=== PATIENT | female | born 1975 | race Caucasian/White ===

== ENCOUNTER 2018-03-24 10:34 | Emergency (ER) | payer OTHER ==
[~2018-03-24] VITALS: Ht 167.6 cm; Wt 82.6 kg
[2018-03-24 11:22] LABS: BASO # 0.1 x10^3/uL (0.0-0.2); BASO % 1 % (0-3); EOS # 0.2 x10^3/uL (0.0-0.7); EOS % 2 % (0-3); HEMATOCRIT 40.8 % (36.0-47.0); LYMPH # 2.1 x10^3/uL (1.0-4.8); LYMPH % 25 % (24-48); MEAN CORPUSCULAR HEMOGLOBIN 31 pg (25-35); MEAN CORPUSCULAR HGB CONC 34 g/dL (31-37); MEAN CORPUSCULAR VOLUME 89 fL (79-100); MONO # 0.6 x10^3/uL (0.0-1.1); MONO % 7 % (0-9); NEUT # 5.5 x10^3uL (1.8-7.7); NEUT % 65 % (31-73); PLATELET COUNT 298 x10^3/uL (140-400); RED BLOOD COUNT 4.57 x10^6/uL (3.50-5.40); RED CELL DISTRIBUTION WIDTH 13.5 % (11.5-14.5); WHITE BLOOD COUNT 8.5 x10^3/uL (4.0-11.0)
--- NOTE | 2018-03-24 11:26 | RAD ---
EXAM: Chest, single view. HISTORY: Chest pain. COMPARISON: None. FINDINGS: A frontal view of the chest is obtained. There is no infiltrate, pleural effusion or pneumothorax. The heart is normal in size. IMPRESSION: No acute pulmonary finding. Electronically signed by: Shadia Guardado MD (03/24/2018 11:23 AM) [place] [id number]
[2018-03-24] MEDS ORDERED: KETOROLAC 30 MG/ML VIAL. IV ONE (11:30)
[2018-03-24 11:40] LABS: ALBUMIN 3.9 g/dL (3.4-5.0); ALBUMIN/GLOBULIN RATIO 0.9 (1.0-1.7); CREATININE 0.8 mg/dL (0.6-1.0); GFR 78.7; POTASSIUM 3.4 mmol/L (3.5-5.1); TOTAL BILIRUBIN 0.3 mg/dL (0.2-1.0); TOTAL PROTEIN 8.1 g/dL (6.4-8.2)
[2018-03-24 12:05] VITALS: BP 117/75
--- NOTE | 2018-03-24 12:07 | PHYS DOC ---
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 Patient complaining of left-sided chest pain intermittently for the last 3 months that usually happen once a day and lasts about 2-3 minutes. Patient states the pain is a sharp pain with radiation to her back and associated with shortness of breath and palpitation that nausea and fever and chills. Patient states her pain lasts for longer time today and she decided to come to the emergency room. Patient states she had home visits by her physician regarding the same pain with pending test. Patient does not have any cardiac risk factor except for smoking. Review of Systems Review of Systems Constitutional: Denies fever or chills [] Eyes: Denies change in visual acuity, redness, or eye pain [] HENT: Denies nasal congestion or sore throat [] Respiratory: Denies cough, reports shortness of breath [] Cardiovascular: No additional information not addressed in HPI [] GI: Denies abdominal pain, nausea, vomiting, bloody stools or diarrhea [] : Denies dysuria or hematuria [] Musculoskeletal: Denies back pain or joint pain [] Integument: Denies rash or skin lesions [] Neurologic: Denies headache, focal weakness or sensory changes [] Endocrine: Denies polyuria or polydipsia [] All other systems were reviewed and found to be within normal limits, except as documented in this note. Current Medications Current Medications Current Medications Medications (Trade) Dose Ordered Sig/Wilbur Start Time Stop Time Status Last Admin Dose Admin Ketorolac Tromethamine (Toradol 30mg Vial) 30 mg 1X ONCE 03/24/18 11:30 03/24/18 11:31 DC 03/24/18 11:26 30 MG Allergies Allergies Allergies Coded Allergies Type Severity Reaction Last Updated Verified No Known Drug Allergies 07/05/14 No Physical Exam Physical Exam mildno acute distress, non-toxic appearance. [] HENT: Normocephalic, atraumatic, , oropharynx moist, no oral exudates, nose normal. [] Eyes: Blind, wearing dark sunglasses Neck: Normal range of motion, no tenderness, supple, no stridor. [] Cardiovascular:Heart rate regular rhythm, no murmur Lungs & Thorax: Bilateral breath sounds clear to auscultation [] Abdomen: Bowel sounds normal, soft, no tenderness, no masses, no pulsatile masses. [] Skin: Warm, dry, no erythema, no rash. [] Back: No tenderness, no CVA tenderness. [] Extremities: No tenderness, no cyanosis, no clubbing, ROM intact, no edema. [] Neurologic: Alert and oriented X 3, normal motor function, normal sensory function, no focal deficits noted. [] Psychologic: Affect normal, judgement normal, mood normal. [] Current Patient Data Vital Signs Vital Signs Date Time Temp Pulse Resp B/P (MAP) Pulse Ox O2 Delivery O2 Flow Rate FiO2 03/24/18 10:41 98.4 75 18 97 Room Air Lab Results Laboratory Tests Test 03/24/18 11:08 White Blood Count 8.5 x10^3/uL (4.0-11.0) Red Blood Count 4.57 x10^6/uL (3.50-5.40) Hemoglobin 14.0 g/dL (12.0-15.5) Hematocrit 40.8 % (36.0-47.0) Mean Corpuscular Volume 89 fL (79-100) Mean Corpuscular Hemoglobin 31 pg (25-35) Mean Corpuscular Hemoglobin Concent 34 g/dL (31-37) Red Cell Distribution Width 13.5 % (11.5-14.5) Platelet Count 298 x10^3/uL (140-400) Neutrophils (%) (Auto) 65 % (31-73) Lymphocytes (%) (Auto) 25 % (24-48) Monocytes (%) (Auto) 7 % (0-9) Eosinophils (%) (Auto) 2 % (0-3) Basophils (%) (Auto) 1 % (0-3) Neutrophils # (Auto) 5.5 x10^3uL (1.8-7.7) Lymphocytes # (Auto) 2.1 x10^3/uL (1.0-4.8) Monocytes # (Auto) 0.6 x10^3/uL (0.0-1.1) Eosinophils # (Auto) 0.2 x10^3/uL (0.0-0.7) Basophils # (Auto) 0.1 x10^3/uL (0.0-0.2) Sodium Level 137 mmol/L (136-145) Potassium Level 3.4 mmol/L (3.5-5.1) L Chloride Level 101 mmol/L (98-107) Carbon Dioxide Level 26 mmol/L (21-32) Anion Gap 10 (6-14) Blood Urea Nitrogen 7 mg/dL (7-20) Creatinine 0.8 mg/dL (0.6-1.0) Estimated GFR (Cockcroft-Gault) 78.7 BUN/Creatinine Ratio 9 (6-20) Glucose Level 99 mg/dL (70-99) Calcium Level 9.0 mg/dL (8.5-10.1) Total Bilirubin 0.3 mg/dL (0.2-1.0) Aspartate Amino Transferase (AST) 17 U/L (15-37) Alanine Aminotransferase (ALT) 31 U/L (14-59) Alkaline Phosphatase 63 U/L (46-116) Creatine Kinase 73 U/L (26-192) Troponin I Quantitative < 0.017 ng/mL (0-0.055) NJ-Fyp-R-Type Natriuretic Peptide 70 pg/mL (0-124) Total Protein 8.1 g/dL (6.4-8.2) Albumin 3.9 g/dL (3.4-5.0) Albumin/Globulin Ratio 0.9 (1.0-1.7) L EKG EKG EKG interpreted by me. EKG at 1042 showed normal sinus rhythm at rate of 78, no acute ST and T-wave abnormalities. Radiology/Procedures Radiology/Procedures [address] [address] IMAGING REPORT Signed PATIENT: AMANUEL CASTORENA ACCOUNT: [id number] : 1975 LOCATION: ER AGE: 43 SEX: F EXAM STATUS: PRE ER ORD. PHYSICIAN: JESSE HAMILTON MD REASON: chest pain PROCEDURE: PORTABLE CHEST 1V EXAM: Chest, single view. HISTORY: Chest pain. COMPARISON: None. FINDINGS: A frontal view of the chest is obtained. There is no infiltrate, pleural effusion or pneumothorax. The heart is normal in size. IMPRESSION: No acute pulmonary finding. Electronically signed by: Shadia De Santiago MD (03/24/2018 11:23 AM) [place] [id number] DICTATED AND SIGNED BY: SHADIA DE SANTIAGO MD DATE: 03/24/18 1123 CC: SHANNON WELCH RN, GNP; JESSE HAMILTON MD ~ Course & Med Decision Making Course & Med Decision Making Pertinent Labs and Imaging studies reviewed. (See chart for details) Evaluation of patient in ER showed 43-year-old female blind patient with complaining of intermittent episodes of chest pain 3 months. Patient had unremarkable physical exam and labs. Patient has only one cardiac risk factor as smoking and instructed to quit smoking and follow up with her primary care physician regarding chronic chest pain that does not look related to heart. Dragon Disclaimer Dragon Disclaimer This electronic medical record was generated, in whole or in part, using a voice recognition dictation system. Departure Departure: Impression: Primary Impression: Non-cardiac chest pain Additional Impressions: Hypokalemia Tobacco abuse Tobacco abuse counseling Blindness Disposition: 01 HOME, SELF-CARE (at 1201) Condition: IMPROVED Referrals: SHANNON WELCH RN, GNP (PCP) Patient Instructions: Chest Pain (Nonspecific), Hypokalemia, Smoking Cessation , Tips For Success Additional Instructions: May take [id number] pain medication as needed for pain Follow-up with your primary care physician in 3-5 days Return to ER if not getting better Problem Qualifiers JESSE HAMILTON MD Mar 24, 2018 12:07
[2018-03-24 12:16] LABS: BARBITURATES NEG (NEG); BENZODIAZEPINES NEG (NEG); CANNABINOIDS POS (NEG); COCAINE NEG (NEG); METHADONE NEG (NEG); OPIATES NEG (NEG); PHENCYCLIDINE NEG (NEG)
[2018-03-24 12:17] LABS: AMPHETAMINE/METHAMPHETAMINE NEG (NEG)
--- NOTE | 2018-03-24 15:36 | EKG ---
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
== END 2018-03-24 12:18 | disposition home or self-care (01) ==
LOC: ER 10:34
DX: R07.89 Other chest pain (principal); E87.6 Hypokalemia; H54.7 Unspecified visual loss; F41.9 Anxiety disorder, unspecified; M19.90 Unspecified osteoarthritis, unspecified site; J44.9 Chronic obstructive pulmonary disease, unspecified; F32.9 Major depressive disorder, single episode, unspecified; M79.7 Fibromyalgia; Z72.0 Tobacco use; Z71.6 Tobacco abuse counseling
CPT/HCPCS: 36415; 71045; 80053; 80307; 82550; 83880; 84484; 85025; 93005; 96374; 99285; J1885; G0479

== ENCOUNTER → 2018-07-06 | Outpatient (CLI) | payer OTHER | END | disposition home or self-care (01) | LOC: MAMMO 11:54 | PROVIDERS: ATTEND Nurse Practitioner Gerontology | DX: Z12.31 Encounter for screening mammogram for malignant neoplasm of breast (principal) | CPT/HCPCS: 77063; 77067 ==

== ENCOUNTER → 2020-05-21 | Outpatient (CLI) | payer OTHER ==
--- NOTE | 2020-05-21 09:43 | RAD ---
Examination: 2 views of the bilateral hips, frontal standing views of the bilateral knees and 2 views of the right knee. HISTORY: History of Knee pain, hip pain COMPARISON: None available. FINDINGS: Mild joint space loss identified in the medial compartment of the bilateral knees. Small right knee joint effusion. Mild joint space loss bilaterally is likely degenerative changes. IMPRESSION: 1. Mild degenerative changes bilateral hip joints and bilateral knees , most in the medial compartment of bilateral knees. Electronically signed by: Robbie Almazan MD (05/21/2020 9:40 AM) [id number]
== END ==
LOC: DXRAD 09:11
PROVIDERS: ATTEND Physician Assistant
DX: M16.0 Bilateral primary osteoarthritis of hip (principal); M17.0 Bilateral primary osteoarthritis of knee; M25.461 Effusion, right knee
CPT/HCPCS: 73521; 73560; 73565

== ENCOUNTER → 2020-06-06 | Outpatient (CLI) | payer OTHER ==
[~2020-06-06] MED LIST: ALBU2.5V14 NEB; ALPR1TAB6 PO; BUDE10.2 IH; CHOL5POW PO; GABA-587 PO; HYDR-3136 PO; HYDR25TA PO; IPRA3AMP29 NEB; LANS30CA PO; LORA10TA3 PO; NICO1PAT25 TP; QUET400T4 PO; TIZA4TAB2 PO
== END ==
LOC: LAB 10:00
PROVIDERS: ATTEND Nurse Anesthetist, Certified Registered
DX: Z01.812 Encounter for preprocedural laboratory examination (principal); Z20.828 Contact with and (suspected) exposure to other viral communicable diseases
CPT/HCPCS: U0003

== ENCOUNTER → 2020-09-04 | Outpatient (CLI) | payer OTHER ==
[2020-09-04 11:25] LABS: BASO # 0.1 x10^3/uL (0.0-0.2); BASO % 1 % (0-3); EOS # 0.1 x10^3/uL (0.0-0.7); EOS % 1 % (0-3); HEMATOCRIT 42.3 % (36.0-47.0); HEMOGLOBIN 14.3 g/dL (12.0-15.5); LYMPH % 27 % (24-48); MEAN CORPUSCULAR HEMOGLOBIN 31 pg (25-35); MEAN CORPUSCULAR HGB CONC 34 g/dL (31-37); MEAN CORPUSCULAR VOLUME 93 fL (79-100); MONO # 0.4 x10^3/uL (0.0-1.1); MONO % 5 % (0-9); NEUT # 5.1 x10^3uL (1.8-7.7); NEUT % 67 % (31-73); PLATELET COUNT 294 x10^3/uL (140-400); RED BLOOD COUNT 4.56 x10^6/uL (3.50-5.40); WHITE BLOOD COUNT 7.7 x10^3/uL (4.0-11.0)
[2020-09-04 11:44] LABS: ALBUMIN 4.2 g/dL (3.4-5.0); ALBUMIN/GLOBULIN RATIO 0.9 (1.0-1.7); CALCIUM 8.6 mg/dL (8.5-10.1); CREATININE 0.9 mg/dL (0.6-1.0); POTASSIUM 3.6 mmol/L (3.5-5.1); TOTAL BILIRUBIN 0.4 mg/dL (0.2-1.0); TOTAL PROTEIN 8.8 g/dL (6.4-8.2)
[2020-09-04 21:05] LABS: THYROID STIM HORMONE (TSH) 1.494 uIU/mL (0.358-3.740)
== END ==
LOC: LAB 10:33
PROVIDERS: ATTEND Internal Medicine
DX: J44.9 Chronic obstructive pulmonary disease, unspecified (principal); M79.7 Fibromyalgia; M08.00 Unspecified juvenile rheumatoid arthritis of unspecified site
CPT/HCPCS: 36415; 80053; 80061; 82306; 82607; 84439; 84443; 85025

== ENCOUNTER → 2020-10-10 | Outpatient (CLI) | payer OTHER ==
[~2020-10-10] MED LIST changes: +DIPH25TA64 PO
== END ==
LOC: LAB 08:30
PROVIDERS: ATTEND Nurse Anesthetist, Certified Registered
DX: Z01.812 Encounter for preprocedural laboratory examination (principal); Z20.822 Contact with and (suspected) exposure to COVID-19; R19.4 Change in bowel habit
CPT/HCPCS: U0003; U0005

== ENCOUNTER → 2020-10-10 | Outpatient (CLI) | payer OTHER ==
[2020-10-11 00:07] LABS: HEMOGLOBIN A1C 6.1 % (4.8-5.6)
== END ==
LOC: LAB 10:21
PROVIDERS: ATTEND Internal Medicine
DX: R73.9 Hyperglycemia, unspecified (principal)
CPT/HCPCS: 36415; 83036

== ENCOUNTER → 2020-10-14 | Day surgery (SDC) | payer OTHER ==
[~2020-10-14] MED LIST changes: +IPRATRPIUM/ALBUTEROL 0.5/2.5MG 3 ML NEBU. NEB PRN; +IV RINGERS SOLUTION,LACTATED 1,000 ML IV SCH; +KETAMINE HCL IN NACL, ISO-OSM 50 MG/5 ML SYRINGE ONE; +LIDOCAINE 2% PF 5 ML VIAL. ONE; +MIDAZOLAM HCL PF 2 MG/2 ML VIAL. IV ONE; +ONDANSETRON PF 4 MG/2 ML VIAL. IV PRN; +PROPOFOL 10,000 MCG/ML (20ML) VIAL IV ONE
[2020-10-14 11:35] VITALS: BP 109/68
--- NOTE | 2020-10-16 17:07 | PATHOLOGY ---
[facility] Accession Number: [id number] . 01 Material submitted: . colon - RANDOM COLON BIOPSY . 01 Clinical history: . CHANGE IN BOWEL HABITS . COLONOSCOPY . . 02 Diagnosis: Colonic mucosa, random colon biopsies: - No significant pathologic abnormalities. . (JP:mm; 10/16/2020) [facility] 10/16/2020 1327 Local . 02 Comment: Sections of the random colon biopsy reveal multiple segments of colonic mucosa. There is no evidence of a chronic destructive colitis, lymphocytic colitis, or collagenous colitis. . (JPM:mml; 10/16/2020) . 02 Electronically signed: . Dain Rodriguez MD, Pathologist NPI- [id number] . 01 Gross description: . The specimen is received in formalin, labeled "Blendall, Faustino, random colon BX" and consist of multiple fragments of soft zhang tissue measuring up to 0.5 cm. Entirely submitted in A1.([facility]; 10/15/2020) [facility] 10/15/2020 1856 Local . 02 Pathologist provided ICD-10: R19.4 . 02 CPT . 034195 Specimen Comment: A courtesy copy of this report has been sent to [phone] Specimen Comment: Report sent to Performed at: 01 [facility] [address], [place] [id number] MD Sameer Hameed MD Phone: [phone] Performed at: 02 [facility] [address] [place], [place] [id number] MD Dain Rodriguez MD Phone: [phone]
== END | disposition home or self-care (01) ==
LOC: SURG 09:35
PROVIDERS: ATTEND Internal Medicine Gastroenterology
DX: R19.4 Change in bowel habit (principal); K52.89 Other specified noninfective gastroenteritis and colitis; K21.9 Gastro-esophageal reflux disease without esophagitis; M06.9 Rheumatoid arthritis, unspecified; Z90.49 Acquired absence of other specified parts of digestive tract; Z98.49 Cataract extraction status, unspecified eye; Z98.890 Other specified postprocedural states; Z90.710 Acquired absence of both cervix and uterus; Z79.899 Other long term (current) drug therapy; F32.9 Major depressive disorder, single episode, unspecified; J44.9 Chronic obstructive pulmonary disease, unspecified; M19.90 Unspecified osteoarthritis, unspecified site; F41.9 Anxiety disorder, unspecified
CPT/HCPCS: 45380; 88305; J2001; J2704; J7120

== ENCOUNTER → 2021-08-03 | Outpatient (CLI) | payer OTHER ==
[2020-10-14 11:35] VITALS: BP 109/68
[~2021-08-03] MED LIST changes: -IPRATRPIUM/ALBUTEROL 0.5/2.5MG 3 ML NEBU. NEB PRN; -IV RINGERS SOLUTION,LACTATED 1,000 ML IV SCH; -KETAMINE HCL IN NACL, ISO-OSM 50 MG/5 ML SYRINGE ONE; -LIDOCAINE 2% PF 5 ML VIAL. ONE; -MIDAZOLAM HCL PF 2 MG/2 ML VIAL. IV ONE; -ONDANSETRON PF 4 MG/2 ML VIAL. IV PRN; -PROPOFOL 10,000 MCG/ML (20ML) VIAL IV ONE; +TIZA-75 PO; -TIZA4TAB2 PO
[2021-08-03 13:25] LABS: BASO % 0 % (0-3); EOS # 0.1 x10^3/uL (0.0-0.7); EOS % 1 % (0-3); HEMATOCRIT 40.9 % (36.0-47.0); HEMOGLOBIN 13.7 g/dL (12.0-15.5); LYMPH # 2.8 x10^3/uL (1.0-4.8); LYMPH % 34 % (24-48); MEAN CORPUSCULAR HEMOGLOBIN 31 pg (25-35); MEAN CORPUSCULAR HGB CONC 34 g/dL (31-37); MEAN CORPUSCULAR VOLUME 93 fL (79-100); MONO # 0.4 x10^3/uL (0.0-1.1); MONO % 5 % (0-9); NEUT # 4.9 x10^3uL (1.8-7.7); NEUT % 60 % (31-73); PLATELET COUNT 271 x10^3/uL (140-400); RED CELL DISTRIBUTION WIDTH 12.9 % (11.5-14.5); WHITE BLOOD COUNT 8.3 x10^3/uL (4.0-11.0)
[2021-08-03 13:34] LABS: ALBUMIN 4.1 g/dL (3.4-5.0); CALCIUM 8.4 mg/dL (8.5-10.1); CREATININE 0.8 mg/dL (0.6-1.0); GFR 77.6; POTASSIUM 4.1 mmol/L (3.5-5.1); TOTAL BILIRUBIN 0.3 mg/dL (0.2-1.0); TOTAL PROTEIN 8.2 g/dL (6.4-8.2)
[2021-08-04 03:07] LABS: HEMOGLOBIN A1C 5.8 % (4.8-5.6)
[2021-08-04 19:09] LABS: CHOLESTEROL/HDL RATIO 4.9; FREE T4 0.91 ng/dL (0.76-1.46); THYROID STIM HORMONE (TSH) 1.079 uIU/mL (0.358-3.740)
== END ==
LOC: LAB 11:05
PROVIDERS: ATTEND Physician Assistant
DX: Z79.899 Other long term (current) drug therapy (principal)
CPT/HCPCS: 36415; 80053; 80061; 83036; 84439; 84443; 84480; 85025

== ENCOUNTER → 2021-10-23 | Outpatient (CLI) | payer OTHER ==
[2020-10-14 11:35] VITALS: BP 109/68
--- NOTE | 2021-10-23 12:44 | RAD ---
Maxillofacial CT without contrast dated 10/23/2021. COMPARISON: None. INDICATION: Chronic sinusitis. Loss of vision 7 years ago. TECHNIQUE: Contiguous axial imaging the maxillofacial bones obtained with thin cut coronal and sagittal reconstr uction. One or more of the following individualized dose reduction techniques were utilized for this examinat ion: 1. Automated exposure control 2. Adjustment of the mA and/or kV according to patient size 3. Use of iterative reconstruction technique FINDINGS: There is a 1.8 cm mucous retention cyst inferior left maxillary sinus. Minimal mucosal thickening of the ethmoid air cells. The paranasal sinuses are otherwise clear. Ostiomeatal units and infundibula a re patent. Mastoid air cells and middle ears are clear. Limited visualized portions the brain parenchyma unremarkable. No significant soft tissue abnormality . There are borderline enlarged bilateral cervical chain lymph nodes, nonspecific. No acute bony abno rmality. IMPRESSION: 1. Prominent mucous retention cyst left maxillary sinus. Otherwise no significant sinus disease. Electronically signed by: Carlos A Anguiano MD (10/23/2021 12:41 PM) SHEA
== END ==
LOC: CT 11:07
PROVIDERS: ATTEND Otolaryngology
DX: J34.1 Cyst and mucocele of nose and nasal sinus (principal); J32.8 Other chronic sinusitis
CPT/HCPCS: 70486

== ENCOUNTER 2021-11-12 01:43 | Emergency (ER) | payer OTHER ==
[~2021-11-12] VITALS: Ht 170.2 cm; Wt 86.0 kg
--- NOTE | 2021-11-12 01:47 | PHYS DOC ---
Past History Past Medical History: Anxiety, Arthritis, COPD, Depression, Fibromyalgia, Other Past Medical History Blind (JUNITO VELASQUEZ MD) Past Surgical History: Cholecystectomy, Hysterectomy, Tonsillectomy (JUNITO VELASQUEZ MD) Alcohol Use: None Drug Use: None (JUNITO VELASQUEZ MD) General Adult HPI: HPI: ". I ve been feeling off the last couple days.. abdomen pain.. more here on the right lower.. I ve had out my gall bladder, hysterectomy and one ovary on the Lt. .. " Patient is a 46 year old female who presents with above hx and complaints gene ralized abdomen pain with some localization right lower quadrant. No history of bad food intake. No history of fever or chills. No history of trauma. No history of recent travel. Patient has had previous cholecystectomy and hysterectomy with 1 oophorectomy on the left. No severe ill contacts. Patient has not had flu vaccination. Noted patient not had COVID vaccination patient has past medical history of arthritis, depression, fibromyalgia, and blindness.. Patient normally follows with Dr. Keating. (JUNITO VELASQUEZ MD) Review of Systems: Review of Systems: Constitutional: Denies fever or chills Eyes: Denies change in visual acuity HENT: Denies nasal congestion or sore throat Respiratory: Denies cough or shortness of breath Cardiovascular: Denies chest pain or edema GI: Complains of abdominal pain, nausea,. Denies vomiting, bloody stools or diarrhea : Denies dysuria Musculoskeletal: Denies back pain or joint pain Integument: Denies rash Neurologic: Denies headache, focal weakness or sensory changes Endocrine: Denies polyuria or polydipsia Lymphatic: Denies swollen glands Psychiatric: Denies depression or anxiety (JUNITO VELASQUEZ MD) Family History: Family History: Noncontributory to presentation (JUNITO VELASQUEZ MD) Current Medications: Current Meds: See nursing for home meds (JUNITO VELASQUEZ MD) Allergies: Allergies: Allergies Coded Allergies Type Severity Reaction Last Updated Verified acetaminophen Allergy Unknown Nausea/vomiting 10/14/20 Yes ibuprofen Allergy Unknown nausea/vomiting 10/14/20 Yes (JUNITO VELASQUEZ MD) Physical Exam: PE: Constitutional: Moderate acute distress, non-toxic appearance. [] HENT: Normocephalic, atraumatic, bilateral external ears normal, oropharynx moist, no oral exudates, nose normal. [] Eyes: Dull corneas, conjunctiva normal, no discharge. [] Reports she is only minimal light- Chronic Blind Neck: Normal range of motion, no tenderness, supple, no stridor. [] Cardiovascular:Heart rate regular rhythm, no murmur [] Lungs & Thorax: Bilateral breath sounds equal apex with scattered wheezes on auscultation [] Abdomen: Bowel sounds normal, soft, right lower quadrant tenderness, no masses, no pulsatile masses. [] Rebound right lower quadrant. Obese. Old surgery scars. Skin: Warm, dry, no erythema, no rash. [] Back: No tenderness, no CVA tenderness. [] Extremities: No tenderness, no cyanosis, no clubbing, ROM intact, no edema. Mild psoas on right Neurologic: Alert and oriented X 3, moves all extremities on request, has distal sensory, blind, no focal deficits noted. [] Psychologic: Affect anxious, judgement normal, mood normal. [] (JUNITO VELASQUEZ MD) EKG: EKG: My interpretation EKG shows sinus rhythm at 70 bpm. No acute findings of STEMI with contralateral changes. [] Time of EKG is 0241 hrs. (JUNITO VELASQUEZ MD) Radiology/Procedures: Radiology/Procedures: [[place] [address] IMAGING REPORT Signed PATIENT: AMANUEL CASTORENA ACCOUNT: [id number] : 1975 LOCATION: ER AGE: 46 SEX: F EXAM STATUS: REG ER ORD. PHYSICIAN: JUNITO VELASQUEZ MD REASON: pain- Rt. lower mid and lower quadrant PROCEDURE: CT ABD PEL W/ORAL CONTRST ONLY PQRS Compliance Statement: One or more of the following individualized dose reduction techniques were utilized for this examination: 1. Automated exposure control 2. Adjustment of the mA and/or kV according to patient size 3. Use of iterative reconstruction technique CT ABDOMEN+PELVIS W Clinical Indication: Reason: pain- Rt. lower mid and lower quadrant / Spl. Instructions: / History: Comparison: None. Technique: Helical CT imaging of the abdomen and pelvis is performed without IV contrast. Oral contrast is administered. Findings: Calcified granuloma in the posterior right lower lobe. Lung bases are otherwise clear. Cardiac size is normal. Cholecystectomy. There is hepatomegaly. The liver is homogeneous. There are calcified granulomas in the spleen. The pancreas, adrenal glands, and abdominal aorta are normal. There is no perinephric stranding or hydronephrosis. There is a partially exophytic round soft tissue density of the interpolar left kidney measuring 1.1 cm, incompletely characterized. There is no renal calculus. The stomach is unremarkable. There is no dilated small bowel. The distal appendix is dilated measuring up to 1.4 cm. There is mild surrounding inflammation. There is no perforation or abscess. There is no colon wall thickening. No abdominal adenopathy or free fluid. The urinary bladder is normal. Hysterectomy. There is a 2.2 cm right ovary functional cyst. Left ovary is not identified. There is no pelvic free fluid. No acute bone abnormality. IMPRESSION: 1. Mild acute appendicitis. 2. Hepatomegaly. 3. There is a partially exophytic round soft tissue density of the left kidney, incompletely characterized. Recommend outpatient renal ultrasound. Electronically signed by: Husam Barnard MD (11/12/2021 5:57 AM) [facility] DICTATED AND SIGNED BY: HUSAM BARNARD MD DATE: 11/12/21 0549][place] [address] IMAGING REPORT Signed PATIENT: AMANUEL CASTORENA ACCOUNT: [id number] : 1975 LOCATION: ER AGE: 46 SEX: F EXAM STATUS: REG ER ORD. PHYSICIAN: JUNITO VELASQUEZ MD REASON: Abdomen pain PROCEDURE: ACUTE ABDOMEN SERIES ACUTE ABDOMEN SERIES History: Abdominal pain. Comparison: AP chest March 24, 2018. Findings: Frontal chest and supine and upright views of the abdomen. The supine KUB is limited due to underpenetration. Cardiomediastinal silhouette is normal. Calcified right hilar lymph node. There is no pleural effusion or pneumothorax. The lungs are clear. Probable calcified granuloma in the right lung base. No pneumoperitoneum is identified. No dilated air-filled loops of small bowel are seen. There is mild air in the transverse colon. Bowel gas pattern is nonobstructive. There are surgical clips in the right upper abdomen. There are calcified granulomas in the spleen. No obvious organomegaly. Bones unremarkable. IMPRESSION: 1. No acute cardiopulmonary process. 2. Nonobstructive bowel gas pattern. Electronically signed by: Husam Barnard MD (11/12/2021 4:44 AM) [facility] DICTATED AND SIGNED BY: HUSAM BARNARD MD DATE: 11/12/21438 CC: JUNITO VELASQUEZ MD; DINO KRAUS DO ~ (JUNITO VELASQUEZ MD) Heart Score: C/O Chest Pain: N/A Risk Factors: Risk Factors: DM, Current or recent (<one month) smoker, HTN, HLP, family history of CAD, obesity. Risk Scores: Score 0 - 3: 2.5% MACE over next 6 weeks - Discharge Home Score 4 - 6: 20.3% MACE over next 6 weeks - Admit for Clinical Observation Score 7 - 10: 72.7% MACE over next 6 weeks - Early Invasive Strategies (JUNITO VELASQUEZ MD) Course & Med Decision Making: Course & Med Decision Making Pertinent Labs and Imaging studies reviewed. (See chart for details) Discussed presentation, testing and treatment plan with .- Transfer to [facility] Awaiting callback from Dr. Gates- electronics repair technician for surgery. Impression: 1. Abdomen Pain 2. Blind 3. Drug Screen + marijuana 4. Tobacco Use 5. Acute Appendicitis [] (JUNITO VELASQUEZ MD) Course & Med Decision Making The patient has been informed of the finding of an acute appendicitis. Prior to my arrival Dr. Velasquez spoke with Dr. Boone who accepted the patient. I did speak with Dr. Gates from [facility] who has agreed to consult with respect to the patient's finding of an acute appendicitis. The patient continues to rest comfortably. She will be transported to [facility] for further medical evaluation and surgical consultation. (ROCIO GRAVES DO) Madhu Disclaimer: Madhu Disclaimer: This electronic medical record was generated, in whole or in part, using a voice recognition dictation system. (JUNITO VELASQUEZ MD) Departure Departure: Impression: Primary Impression: Renal mass, left Disposition: 09 ADMITTED INPATIENT Admitting Physician: Zari Boone (ROCIO GRAVES DO) Condition: STABLE Referrals: DINO KRAUS DO (PCP) Madhu Disclaimer This chart was dictated in whole or in part using Voice Recognition software in a busy, high-work load, and often noisy Emergency Department environment. It may contain unintended and wholly unrecognized errors or omissions. (JUNITO VELASQUEZ MD) Dragon Disclaimer This chart was dictated in whole or in part using Voice Recognition software in a busy, high-work load, and often noisy Emergency Department environment. It may contain unintended and wholly unrecognized errors or omissions. (JUNITO VELASQUEZ MD) Dragon Disclaimer This chart was dictated in whole or in part using Voice Recognition software in a busy, high-work load, and often noisy Emergency Department environment. It may contain unintended and wholly unrecognized errors or omissions. (JUNITO VELASQUEZ MD) JUNITO VELASQUEZ MD November 12, 2021 01:47 ROCIO GRAVES DO November 12, 2021 07:16
[2021-11-12] MEDS ORDERED: IV RINGERS SOLUTION,LACTATED 1,000 ML IV SCH (02:00)
[2021-11-12] MEDS ORDERED: ONDANSETRON PF 4 MG/2 ML VIAL. IVP ONE (02:00)
[2021-11-12] MEDS ORDERED: FAMOTIDINE 20 MG/2 ML VIAL IVP ONE (02:00)
--- NOTE | 2021-11-12 02:51 | EKG ---
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
[2021-11-12] MEDS ORDERED: KETOROLAC 30 MG/ML VIAL. IVP ONE (03:00)
[2021-11-12 03:03] LABS: BASO # 0.1 x10^3/uL (0.0-0.2); BASO % 1 % (0-3); EOS # 0.2 x10^3/uL (0.0-0.7); EOS % 2 % (0-3); HEMATOCRIT 40.1 % (36.0-47.0); HEMOGLOBIN 13.6 g/dL (12.0-15.5); LYMPH # 3.5 x10^3/uL (1.0-4.8); LYMPH % 35 % (24-48); MEAN CORPUSCULAR HEMOGLOBIN 31 pg (25-35); MEAN CORPUSCULAR HGB CONC 34 g/dL (31-37); MEAN CORPUSCULAR VOLUME 93 fL (79-100); MONO # 0.5 x10^3/uL (0.0-1.1); MONO % 5 % (0-9); NEUT # 5.6 x10^3uL (1.8-7.7); NEUT % 57 % (31-73); PLATELET COUNT 279 x10^3/uL (140-400); RED BLOOD COUNT 4.33 x10^6/uL (3.50-5.40); RED CELL DISTRIBUTION WIDTH 13.3 % (11.5-14.5); WHITE BLOOD COUNT 9.9 x10^3/uL (4.0-11.0)
[2021-11-12 03:11] LABS: CLARITY,URINE CLEAR; COLOR,URINE YELLOW; GLUCOSE,URINE NEG (NEG); NITRITE,URINE NEG (NEG); UROBILINOGEN,URINE 0.2 mg/dL (0.2 mg/dL)
[2021-11-12 03:12] LABS: BACTERIA,URINE FEW /HPF (0-FEW); RBC,URINE 0 /HPF (0-2); SQUAMOUS EPITHELIAL CELL,UR MOD /LPF; WBC,URINE 0 /HPF (0-4)
[2021-11-12 03:13] LABS: AMPHETAMINE/METHAMPHETAMINE NEG (NEG); BARBITURATES NEG (NEG); BENZODIAZEPINES NEG (NEG); CANNABINOIDS POS (NEG); COCAINE NEG (NEG); METHADONE NEG (NEG); OPIATES NEG (NEG); PHENCYCLIDINE NEG (NEG)
[2021-11-12 03:23] LABS: ANION GAP 10 (6-14); BLOOD UREA NITROGEN 16 mg/dL (7-20); CALCIUM 9.3 mg/dL (8.5-10.1); CARBON DIOXIDE 26 mmol/L (21-32); CHLORIDE 100 mmol/L (98-107); CREATININE 0.8 mg/dL (0.6-1.0); GFR 77.6; GLUCOSE 120 mg/dL (70-99); POTASSIUM 4.2 mmol/L (3.5-5.1); SODIUM 136 mmol/L (136-145)
[2021-11-12 03:29] LABS: ALBUMIN 4.1 g/dL (3.4-5.0); ALK PHOS 64 U/L (46-116); ALT (SGPT) 53 U/L (14-59); AMYLASE 45 U/L (25-115); AST (SGOT) 25 U/L (15-37); LIPASE 173 U/L (73-393); TOTAL BILIRUBIN 0.4 mg/dL (0.2-1.0); TOTAL PROTEIN 7.7 g/dL (6.4-8.2)
[2021-11-12 03:30] LABS: DIRECT BILIRUBIN < 0.1 mg/dL (0.0-0.2)
[2021-11-12] MEDS ORDERED: IOHEXOL 240 MG/ML 50ML VIAL. ONE (04:12)
--- NOTE | 2021-11-12 04:46 | RAD ---
ACUTE ABDOMEN SERIES History: Abdominal pain. Comparison: AP chest March 24, 2018. Findings: Frontal chest and supine and upright views of the abdomen. The supine KUB is limited due to underpene tration. Cardiomediastinal silhouette is normal. Calcified right hilar lymph node. There is no pleural effusio n or pneumothorax. The lungs are clear. Probable calcified granuloma in the right lung base. No pneumoperitoneum is identified. No dilated air-filled loops of small bowel are seen. There is mild air in the transverse colon. Bowel gas pattern is nonobstructive. There are surgical clips in the [facility] upper abdomen. There are calcified granulomas in the spleen. No obvious organomegaly. Bones unremarkable. IMPRESSION: 1. No acute cardiopulmonary process. 2. Nonobstructive bowel gas pattern. Electronically signed by: Husam Barnard MD (11/12/2021 4:44 AM) [facility]
--- NOTE | 2021-11-12 05:59 | RAD ---
PQRS Compliance Statement: One or more of the following individualized dose reduction techniques were utilized for this examinat ion: 1. Automated exposure control 2. Adjustment of the mA and/or kV according to patient size 3. Use of iterative reconstruction technique CT ABDOMEN+PELVIS W Clinical Indication: Reason: pain- Rt. lower mid and lower quadrant / Spl. Instructions: / History: Comparison: None. Technique: Helical CT imaging of the abdomen and pelvis is performed without IV contrast. Oral contra st is administered. Findings: Calcified granuloma in the posterior right lower lobe. Lung bases are otherwise clear. Cardiac size i s normal. Cholecystectomy. There is hepatomegaly. The liver is homogeneous. There are calcified granulomas in t he spleen. The pancreas, adrenal glands, and abdominal aorta are normal. There is no perinephric stranding or hydronephrosis. There is a partially exophytic round soft tissue density of the interpolar left kidney measuring 1.1 cm, incompletely characterized. There is no viktor l calculus. The stomach is unremarkable. There is no dilated small bowel. The distal appendix is dilated measurin g up to 1.4 cm. There is mild surrounding inflammation. There is no perforation or abscess. There is no colon wall thickening. No abdominal adenopathy or free fluid. The urinary bladder is normal. Hysterectomy. There is a 2.2 cm right ovary functional cyst. Left ovar y is not identified. There is no pelvic free fluid. No acute bone abnormality. IMPRESSION: 1. Mild acute appendicitis. 2. Hepatomegaly. 3. There is a partially exophytic round soft tissue density of the left kidney, incompletely charact erized. Recommend outpatient renal ultrasound. Electronically signed by: Husam Barnard MD (11/12/2021 5:57 AM) [facility]
[2021-11-12] MEDS ORDERED: IV RINGERS SOLUTION,LACTATED 1,000 ML IV ONE (06:15)
[2021-11-12] MEDS ORDERED: MORPHINE SULFATE 10 MG/ML SYRINGE. SQ ONE (06:15)
[2021-11-12 06:29] VITALS: BP 152/102
[2021-11-12] MEDS ORDERED: IV NORMAL SALINE 50ML 0 ML ONE (07:11)
[2021-11-12] MEDS ORDERED: cefTRIAXone SODIUM 1 GM VIAL ONE (07:11)
[2021-11-12] MEDS ORDERED: PIPERACILLIN/TAZOBACTAM 4.5 GM in IV NORMAL SALINE 50ML 50 ML IV ONE (07:15)
[2021-11-12] MEDS ORDERED: IV NORMAL SALINE 50ML 50 ML ONE (07:31)
[2021-11-12] MEDS ORDERED: PIPERACILLIN/TAZOBACTAM 4.5 GM VIAL IV ONE (07:31)
[2021-11-12 08:33] LABS: INFLUENZA A PATIENT NEGATIVE (NEGATIVE); INFLUENZA B PATIENT NEGATIVE (NEGATIVE)
== END 2021-11-12 08:48 | disposition short-term general hospital (02) ==
LOC: ER 01:43
DX: K35.80 Unspecified acute appendicitis (principal); N28.89 Other specified disorders of kidney and ureter; H54.7 Unspecified visual loss; F12.90 Cannabis use, unspecified, uncomplicated; M19.90 Unspecified osteoarthritis, unspecified site; J44.9 Chronic obstructive pulmonary disease, unspecified; M79.7 Fibromyalgia; Z72.0 Tobacco use; Z20.822 Contact with and (suspected) exposure to COVID-19; Z90.49 Acquired absence of other specified parts of digestive tract; Z90.710 Acquired absence of both cervix and uterus; Z88.6 Allergy status to analgesic agent
CPT/HCPCS: 36415; 74022; 74176; 80048; 80076; 80307; 81001; 82150; 82550; 83690; 84484; 85025; 85610; 85730; 87428; 93005; 96361; 96365; 96372; 96375; 99285; C9803; J1885; J2270; J2405; J2543; J3490; J7120; U0003